=== PATIENT | female | born 1955 | race Caucasian/White ===

== ENCOUNTER 2016-12-21 20:22 | Emergency (ER) | payer BC, OTHER ==
--- NOTE | 2016-12-21 20:51 | EDM.PDOC ---
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 Patient thought initially she might have some constipation issues the stool came out somewhat thin and ribbonlike and soft but indicates she's never been regular. Now she indicates that what has brought her to the ED is the pain has now radiated into her lower back flank area.] Review of systems: As per history of present illness and below otherwise all systems reviewed and negative. Past medical history: As per history of present illness and as reviewed below otherwise noncontributory. Surgical history: As per history of present illness and as reviewed below otherwise noncontributory. Social history: No reported history of drug or alcohol abuse. Family history: As per history of present illness and as reviewed below otherwise noncontributory. Physical exam: HEENT: Atraumatic, normocephalic, pupils reactive, negative for conjunctival pallor or scleral icterus, mucous membranes moist, throat clear, neck supple, nontender, trachea midline. Lungs: Clear to auscultation, breath sounds equal bilaterally, chest nontender. Heart: S1S2, regular, negative for clicks, rubs, or JVD. Abdomen: Soft, nondistended, nontender. Negative for masses or hepatosplenomegaly. Negative for costovertebral tenderness. Pelvis: Stable nontender. Genitourinary: Deferred. Rectal: Deferred. Extremities: Atraumatic, negative for cords or calf pain. Neurovascular unremarkable. Neuro: Awake, alert, oriented. Cranial nerves II through XII unremarkable. Cerebellum unremarkable. Motor and sensory unremarkable throughout. Exam nonfocal. Patient indicated that her pain was improved and desired to go home results returned showing an acute diverticulitis patient white blood cells are within normal limits. Discussed with patient's risks and benefits and she indicated she would like to try by mouth meds at home with follow-up with her PCP on Saturday. Diagnostics: [CBC, CMP, lipase, amylase, troponin, CT of the abdomen] Therapeutics: [] Impression: [Diverticulitis] Plan: [Flagyl and Cipro] Definitive disposition and diagnosis as appropriate pending reevaluation and review of above. Left Lower Abdomen Pain Score (Numeric/FACES): 5 - Related Data Allergies Allergy/AdvReac Type Severity Reaction Status Date / Time No Known Allergies Allergy Verified 12/21/16 21:04 Home Meds: Home Meds Budesonide/Formoterol [Symbicort 80-4.5 MCG] 2 puff INH DAILY 12/21/16 [History] Fish Oil/[place]-3 Fatty Acids [Fish Oil 1,000 MG] 1 cap PO DAILY 12/21/16 [ History] ED ROS GENERAL - Review of Systems Review Of Systems: See Below (History of present illness) ED EXAM, GENERAL - Physical Exam Exam: See Below (See history of present illness) Course - Vital Signs Last Recorded V/S: Last Vital Signs Temp 36.4 C 12/21/16 20:49 Pulse 88 12/21/16 20:49 Resp 16 12/21/16 20:49 BP 132/72 12/21/16 20:49 Pulse Ox 97 12/21/16 20:49 - Orders/Labs/Meds Orders: Active Orders 24 hr Category Date Time Status Abdomen Pelvis w Cont [CT] Stat Exams 12/21/16 21:22 Taken AMYLASE [CHEM] Stat Lab 12/21/16 23:09 Received LIPASE [CHEM] Stat Lab 12/21/16 23:09 Received TROPONIN I [CHEM] Stat Lab 12/21/16 23:09 Received Labs: Laboratory Tests 12/21/16 12/21/16 12/21/16 Range/Units 20:50 20:50 21:00 WBC 7.80 (4.0-11.0) K/uL RBC 4.48 (4.30-5.90) M/uL Hgb 13.9 (12.0-16.0) g/dL Hct 41.9 (36.0-46.0) % MCV 93.5 (80.0-98.0) fL MCH 31.0 (27.0-32.0) pg MCHC 33.2 (31.0-37.0) g/dL RDW Std Deviation 45.7 (28.0-62.0) fl RDW Coeff of [place] 13 (11.0-15.0) % Plt Count 236 (150-400) K/uL MPV 10.30 (7.40-12.00) fL Neut % (Auto) 58.2 (48.0-80.0) % Lymph % (Auto) 25.9 (16.0-40.0) % [place] % (Auto) 10.1 (0.0-15.0) % Eos % (Auto) 5.3 (0.0-7.0) % Baso % (Auto) 0.5 (0.0-1.5) % Neut # (Auto) 4.5 (1.4-5.7) K/uL Lymph # (Auto) 2.0 (0.6-2.4) K/uL [place] # (Auto) 0.8 (0.0-0.8) K/uL Eos # (Auto) 0.4 (0.0-0.7) K/uL Baso # (Auto) 0.0 (0.0-0.1) K/uL Nucleated RBC % 0.0 /100WBC Nucleated RBCs # 0 K/uL Sodium (136-146) mmol/L Potassium (3.5-5.1) mmol/L Chloride (98-110) mmol/L Carbon Dioxide (21-31) mmol/L BUN (6.0-23.0) mg/dL Creatinine (0.6-1.5) mg/dL Est Cr Clr Drug Dosing Estimated GFR (MDRD) ml/min Glucose (60-110) mg/dL Calcium (8.8-10.8) mg/dL Total Bilirubin (0.1-1.5) mg/dL AST (5-40) IU/L ALT (8-54) IU/L Alkaline Phosphatase (40-150) Total Protein (6.0-8.0) g/dL Albumin (3.4-4.8) g/dL Globulin (2.0-3.5) g/dL Albumin/Globulin Ratio (1.3-2.8) Urine Color YELLOW Urine Appearance SLT CLOUDY Urine pH 6.0 (5.0-8.0) Ur Specific [place] >= 1.030 (1.001-1.035) Urine Protein NEGATIVE (NEGATIVE) mg/dL Urine Glucose (UA) NEGATIVE (NEGATIVE) mg/dL Urine Ketones TRACE H (NEGATIVE) mg/dL Urine Occult Blood TRACE-INTACT (NEGATIVE) Urine Nitrite NEGATIVE (NEGATIVE) Urine Bilirubin NEGATIVE (NEGATIVE) Urine Urobilinogen 0.2 (<2.0) EU/dL Ur Leukocyte Esterase TRACE (NEGATIVE) Urine RBC 0-2 (0-2/HPF) Urine WBC 10-15 (0-5/HPF) Ur Epithelial Cells MANY (NONE-FEW) Urine Bacteria 1+ H (NEGATIVE) Urine Mucus LIGHT (NONE-MOD) Urine HCG, Qual NEGATIVE (NEGATIVE) 12/21/16 Range/Units 21:00 WBC (4.0-11.0) K/uL RBC (4.30-5.90) M/uL Hgb (12.0-16.0) g/dL Hct (36.0-46.0) % MCV (80.0-98.0) fL MCH (27.0-32.0) pg MCHC (31.0-37.0) g/dL RDW Std Deviation (28.0-62.0) fl RDW Coeff of [place] (11.0-15.0) % Plt Count (150-400) K/uL MPV (7.40-12.00) fL Neut % (Auto) (48.0-80.0) % Lymph % (Auto) (16.0-40.0) % [place] % (Auto) (0.0-15.0) % Eos % (Auto) (0.0-7.0) % Baso % (Auto) (0.0-1.5) % Neut # (Auto) (1.4-5.7) K/uL Lymph # (Auto) (0.6-2.4) K/uL [place] # (Auto) (0.0-0.8) K/uL Eos # (Auto) (0.0-0.7) K/uL Baso # (Auto) (0.0-0.1) K/uL Nucleated RBC % /100WBC Nucleated RBCs # K/uL Sodium 140 (136-146) mmol/L Potassium 3.9 (3.5-5.1) mmol/L Chloride 107 (98-110) mmol/L Carbon Dioxide 21 (21-31) mmol/L BUN 18 (6.0-23.0) mg/dL Creatinine 1.0 (0.6-1.5) mg/dL Est Cr Clr Drug Dosing TNP Estimated GFR (MDRD) 56.4 ml/min Glucose 102 (60-110) mg/dL Calcium 10.1 (8.8-10.8) mg/dL Total Bilirubin 0.4 (0.1-1.5) mg/dL AST 16 (5-40) IU/L ALT 20 (8-54) IU/L Alkaline Phosphatase 68 (40-150) Total Protein 8.2 H (6.0-8.0) g/dL Albumin 4.3 (3.4-4.8) g/dL Globulin 3.9 H (2.0-3.5) g/dL Albumin/Globulin Ratio 1.1 L (1.3-2.8) Urine Color Urine Appearance Urine pH (5.0-8.0) Ur Specific [place] (1.001-1.035) Urine Protein (NEGATIVE) mg/dL Urine Glucose (UA) (NEGATIVE) mg/dL Urine Ketones (NEGATIVE) mg/dL Urine Occult Blood (NEGATIVE) Urine Nitrite (NEGATIVE) Urine Bilirubin (NEGATIVE) Urine Urobilinogen (<2.0) EU/dL Ur Leukocyte Esterase (NEGATIVE) Urine RBC (0-2/HPF) Urine WBC (0-5/HPF) Ur Epithelial Cells (NONE-FEW) Urine Bacteria (NEGATIVE) Urine Mucus (NONE-MOD) Urine HCG, Qual (NEGATIVE) Meds: Medications Discontinued Medications Generic Name Dose Route Start Last Admin Trade Name Freq PRN Reason Stop Dose Admin Iopamidol 80 ml 12/21/16 22:50 Isovue-300 (61%) IVPUSH 12/21/16 22:51 ONETIME STA Iopamidol 75 ml 12/21/16 22:52 12/21/16 22:54 Isovue-300 (61%) IARTIC 12/21/16 22:53 75 ml ONETIME ONE Administration Departure - Departure Time of Disposition: 23:33 Disposition: Home, Self-Care 01 Condition: Good Clinical Impression: Diverticulitis - Discharge Information Referrals: PCP,None [Primary Care Provider] - Additional Instructions: The following information is given to patients seen in the emergency department who are being discharged to home. This information is to outline your options for follow-up care. We provide all patients seen in our emergency department with a follow-up referral. The need for follow-up, as well as the timing and circumstances, are variable depending upon the specifics of your emergency department visit. If you don't have a primary care physician on staff, we will provide you with a referral. We always advise you to contact your personal physician following an emergency department visit to inform them of the circumstance of the visit and for follow-up with them and/or the need for any referrals to a consulting specialist. The emergency department will also refer you to a specialist when appropriate. This referral assures that you have the opportunity for follow-up care with a specialist. All of these measure are taken in an effort to provide you with optimal care, which includes your follow-up. Under all circumstances we always encourage you to contact your private physician who remains a resource for coordinating your care. When calling for follow-up care, please make the office aware that this follow-up is from your recent emergency room visit. If for any reason you are refused follow-up, please contact the [facility] Emergency Department at and asked to speak to the emergency department charge nurse. Take medication as directed Follow-up with PCP on Saturday as discussed Return to ED as needed as discussed - My Orders Last 24 Hours: My Active Orders 12/21/16 21:22 Abdomen Pelvis w Cont [CT] Stat 12/21/16 23:09 AMYLASE [CHEM] Stat LIPASE [CHEM] Stat TROPONIN I [CHEM] Stat - Assessment/Plan Last 24 Hours: My Active Orders 12/21/16 21:22 Abdomen Pelvis w Cont [CT] Stat 12/21/16 23:09 AMYLASE [CHEM] Stat LIPASE [CHEM] Stat TROPONIN I [CHEM] Stat
[2016-12-21 21:35] LABS: CHLORIDE,CL 107 mmol/L (98-110); SODIUM,NA 140 mmol/L (136-146)
[2016-12-21] MEDS ORDERED: Iopamidol 612 MG/ML 50 ML SDV IVPUSH STA (22:50)
[2016-12-21] MEDS ORDERED: Iopamidol 612 MG/ML 75 ML Bottle IARTIC ONE (22:52)
--- NOTE | 2016-12-23 18:46 | CT ---
EXAM DATE: 12/21/16 PATIENT'S AGE: 61 Patient: MELCHOR RIDDLE Facility: [place], [place] Site . Site : 1955 Study: CT Abdomen/Pelvis [id number] 10:44:34 PM Ordering Physician: Doctor Vieira Final Report: HISTORY: Left lower quadrant abdominal pain x3 days. TECHNIQUE: The abdomen and pelvis were scanned using technique 3 mm intervals after 80 cc of Isovue-300. Sagittal and coronal reconstructions were performed. FINDINGS: Lung bases: No infiltrate. Liver and gallbladder: The liver parenchyma is homogeneous. The gallbladder is small. No calcified gallstones. Spleen, pancreas and adrenal glands: Unremarkable. Kidneys and bladder: Symmetric nephrograms. No calcified urolithiasis or hydronephrosis. The bladder is incompletely distended and unremarkable in appearance. Retroperitoneum and lymph nodes: Abdominal aorta is normal in caliber. There are small periaortic and mesenteric lymph nodes. No pathologic adenopathy is identified. GI tract: Stomach is incompletely distended. There is some fluid and air seen in nondilated small bowel loops. The appendix is retrocecal and normal. There is some stool and gas seen scattered throughout the colon. There is diverticula of the descending and sigmoid colon. The junction of the descending and sigmoid colon, there is wall thickening and pericolic inflammatory change most consistent with acute diverticulitis. No abscess or perforation. No free air in the abdomen. There is no free fluid the pelvis. Pelvic structures: Uterus and adnexa are normal. Osseous structures: There is mild degenerative changes of the discs. IMPRESSION: Simple acute diverticulitis with wall thickening and pericolonic inflammatory change about the junction of the descending and proximal sigmoid colon. Because the wall thickening, follow up exam or colonoscopy is recommended after treatment to document resolution and exclude an underlying neoplastic process. Dictated by Jory Ya MD @ 12/21/2016 11:12:00 PM Dictated by: Jory Ya MD @ 12/21/2016 23:13:19 (Electronic Signature) Report Signed by Proxy. MUMTAZ
== END 2016-12-21 23:47 | disposition home or self-care (01) ==
LOC: MW.ED 20:22
DX: K57.92 Diverticulitis of intestine, part unspecified, without perforation or abscess without bleeding (principal); Z79.899 Other long term (current) drug therapy
CPT/HCPCS: 36415; 74177; 80053; 81001; 81025; 82150; 83690; 84484; 85025; 99284; Q9967; 99283

== ENCOUNTER 2020-02-19 06:51 | Day surgery (SDC) | payer BC, OTHER ==
[2020-02-19] MEDS ORDERED: Ondansetron 4 MG/2 ML SDV ONE (07:13)
[2020-02-19] MEDS ORDERED: Propofol 200 MG/20 ML SDV ONE (07:14)
[2020-02-19] MEDS ORDERED: Midazolam 1 MG/ML 2 ML SDV ONE (07:14)
[2020-02-19] MEDS ORDERED: fentaNYL 100 MCG/2 ML SDV ONE (07:14)
--- NOTE | 2020-02-19 07:48 | PCM.PREANE ---
Preanesthetic Assessment - Anesthesia/Transfusion/Family Hx Anesthesia History: Prior Anesthesia Without Reaction Family History of Anesthesia Reaction: No Transfusion History: No Prior Transfusion(s) Intubation History: Unknown - Review of Systems General: No Symptoms Pulmonary: No Symptoms Cardiovascular: No Symptoms Gastrointestinal: Difficulty Swallowing Neurological: No Symptoms Other: Reports: None - Physical Assessment Vital Signs: Last Vital Signs Temp 36.7 C 02/19/20 07:00 Pulse 82 02/19/20 07:00 Resp 16 02/19/20 07:00 BP 148/77 H 02/19/20 07:00 Pulse Ox 97 02/19/20 07:00 Height: 5 ft 3 in Weight: 68.946 kg ASA Class: 2 Mental Status: Alert & Oriented x3 Airway Class: Mallampati = 2 Dentition: Reports: Normal Dentition Thyro-Mental Finger Breadths: 2 (slopping chin) Mouth Opening Finger Breadths: 3 ROM/Head Extension: Full Lungs: Clear to Auscultation, Normal Respiratory Effort Cardiovascular: Regular Rate, Regular Rhythm - Allergies Allergies/Adverse Reactions: Allergies Allergy/AdvReac Type Severity Reaction Status Date / Time No Known Allergies Allergy Verified 02/15/20 08:26 - Blood Blood Available: No - Anesthesia Plan Pre-Op Medication Ordered: None - Acknowledgements Anesthesia Type Planned: MAC Pt an Appropriate Candidate for the Planned Anesthesia: Yes Alternatives and Risks of Anesthesia Discussed w Pt/Guardian: Yes Pt/Guardian Understands and Agrees with Anesthesia Plan: Yes PreAnesthesia Questionnaire - Past Health History Medical/Surgical History: Denies Medical/Surgical History HEENT History: Reports: Hard of Hearing, Impaired Vision Other HEENT History: wears glasses and hearing aids both ears Cardiovascular History: Reports: High Cholesterol Respiratory History: Reports: Asthma (symbicort once in the morning) Gastrointestinal History: Reports: Colon Polyp, Other (See Below) Other Gastrointestinal History: dysphagia Genitourinary History: Reports: None [employer] History: Musculoskeletal History: Reports: None Neurological History: Reports: None Psychiatric History: Reports: None Endocrine/Metabolic History: Reports: None Hematologic History: Reports: None Immunologic History: Reports: None Oncologic (Cancer) History: Reports: None Dermatologic History: Reports: None - Infectious Disease History Infectious Disease History: Reports: Mumps Other Infectious Disease History: when a child - Past Surgical History Head Surgeries/Procedures: Reports: None HEENT Surgical History: Reports: None Cardiovascular Surgical History: Reports: None GI Surgical History: Reports: Colonoscopy, EGD, Polypectomy Neurological Surgical History: Reports: None - SUBSTANCE USE Tobacco Use Status *Q: Former Tobacco User - HOME MEDS Home Medications: Home Meds Budesonide/Formoterol [Symbicort 80-4.5 MCG] 2 puff INH DAILY 12/21/16 [History] Fish Oil/[place]-3 Fatty Acids [Fish Oil 1,000 MG] 1 cap PO DAILY 12/21/16 [History] Famotidine 1 tab PO BID 02/15/20 [History] Inulin/Chromium Picolinate [Fiber Gummies] 3 tab PO DAILY 02/15/20 [History] Simvastatin 1 tab PO DAILY 02/15/20 [History] - CURRENT (IN HOUSE) MEDS Current Meds: Current Medications Lactated Ringer's (Ringers, Lactated) 1,000 mls @ 125 mls/hr IV ASDIRECTED CHRISTINA Last Admin: 02/19/20 07:20 Dose: 125 mls/hr Documented by: Discontinued Medications Fentanyl (Sublimaze) Confirm Administered Dose 100 mcg .ROUTE .STK-MED ONE Stop: 02/19/20 07:15 Lidocaine HCl (Xylocaine-Mpf 1%) Confirm Administered Dose 10 ml .ROUTE .STK-MED ONE Stop: 02/19/20 07:14 Midazolam HCl (Versed 1 Mg/Ml) Confirm Administered Dose 2 mg .ROUTE .STK-MED ONE Stop: 02/19/20 07:15 Ondansetron HCl (Zofran) Confirm Administered Dose 4 mg .ROUTE .STK-MED ONE Stop: 02/19/20 07:14 Propofol (Diprivan 20 Ml) Confirm Administered Dose 200 mg .ROUTE .STK-MED ONE Stop: 02/19/20 07:15
[2020-02-19] MEDS ORDERED: Lactated Ringers 1,000 ML IV SCH ×2 (08:30→08:45)
--- NOTE | 2020-02-19 08:45 | PCM.OPNOTE ---
- General Post-Op/Procedure Note Date of Surgery/Procedure: 02/19/20 Operative Procedure(s): Esophagogastroduodenoscopy with gastric and distal esophageal biopsies. Pre Op Diagnosis: Dysphagia. Family history of esophageal carcinoma. Post-Op Diagnosis: Moderate chronic gastritis without ulceration. Esophagitis. Presbyesophagus with tertiary contractions. Anesthesia Technique: MAC (ASA II) Primary Surgeon: Kem Montelongo Condition: Good Free Text/Narrative:: DICTATION [id number] CPT CODE 21154
--- NOTE | 2020-02-19 08:55 | PCM.POSTAN ---
POST ANESTHESIA ASSESSMENT - MENTAL STATUS Mental Status: Alert, Oriented - VITAL SIGNS Vital Signs: Last Vital Signs Temp 36.7 C 02/19/20 07:00 Pulse 81 02/19/20 08:51 Resp 13 02/19/20 08:51 BP 114/70 02/19/20 08:51 Pulse Ox 95 02/19/20 08:51 - RESPIRATORY Respiratory Status: Respiratory Rate WNL, Airway Patent, O2 Saturation Stable - CARDIOVASCULAR CV Status: Pulse Rate WNL, Blood Pressure Stable - GASTROINTESTINAL GI Status: No Symptoms - PAIN Pain Score: 0 - POST OP HYDRATION Hydration Status: Adequate & Stable - OBSERVATIONS Free Text/Narrative:: No anesthesia problems
--- NOTE | 2020-02-19 09:15 | PCM48HPAN ---
Post Anesthesia Note - EVALUATION WITHIN 48HRS OF ANESTHETIC Vital Signs in Normal Range: Yes Patient Participated in Evaluation: Yes Respiratory Function Stable: Yes Airway Patent: Yes Cardiovascular Function Stable: Yes Hydration Status Stable: Yes Pain Control Satisfactory: Yes Nausea and Vomiting Control Satisfactory: Yes Mental Status Recovered: Yes Vital Signs: Last Vital Signs Temp 36.5 C 02/19/20 08:51 Pulse 73 02/19/20 08:51 Resp 14 02/19/20 08:51 BP 141/97 H 02/19/20 08:51 Pulse Ox 95 02/19/20 08:51 - COMMENTS/OBSERVATIONS Free Text/Narrative:: No anesthesia problems
--- NOTE | 2020-02-19 09:42 | OR ---
SURGEON: Kem Montelongo M.D. DATE OF PROCEDURE: 02/19/2020 OPERATION PERFORMED: Esophagogastroduodenoscopy with gastric and esophageal biopsy. PRIMARY SURGEON: Kem Montelongo MD ANESTHESIA: MAC. ASA CLASSIFICATION: II. PREOPERATIVE DIAGNOSES: 1. Persistent dysphagia. 2. Family history of esophageal adenocarcinoma. POSTOPERATIVE DIAGNOSES: 1. Moderate chronic gastritis. 2. Presbyesophagus with tertiary contractions. DESCRIPTION OF PROCEDURE: The patient was taken to the endoscopy room and placed on the endoscopy table in the supine position. Time-out was called for appropriate identification of patient and procedure. Monitored anesthesia care was provided. The bite block was placed between the patient's teeth. The gastroscope was inserted through the bite block into the oropharynx and advanced without difficulty through the esophagus and stomach into the duodenum. Examination was carried out in a retrograde fashion. The duodenum showed no acute inflammatory changes or ulcerations. The stomach did show [id number] chronic gastritis. Antral biopsies were obtained to look for the presence of Helicobacter pylori. The gastroscope was retroflexed to visualize the proximal stomach. No ulcerations or tumors were noted proximally. No significant hiatal hernia was noted. The gastroscope was then straightened and slowly withdrawn carefully visualizing the greater and lesser curvatures. No tumors, polyps, or ulcerations were noted. The GE junction was well defined but did show some mild inflammatory changes. Separate biopsies of the GE junction at 37 cm were obtained. This was relatively close to the esophageal hiatus and certainly less than 3 cm from that. The scope was then slowly withdrawn to the mid esophagus. No significant longitudinal stripping waves were noted. Multiple tertiary contractions were noted. As the gastroscope was withdrawn, the vocal cords were briefly visualized and noted to move symmetrically. The gastroscope was then removed with the patient having tolerated the procedure well. She was taken to recovery room in stable condition. DAVID / CIERRA /[id number]
== END 2020-02-19 09:20 | disposition home or self-care (01) ==
LOC: MW.SDS 06:51
PROVIDERS: ATTEND Surgery
DX: K29.50 Unspecified chronic gastritis without bleeding (principal); K20.90 Esophagitis, unspecified without bleeding; K22.8 Other specified diseases of esophagus; E78.00 Pure hypercholesterolemia, unspecified; J45.909 Unspecified asthma, uncomplicated; Z79.899 Other long term (current) drug therapy; Z98.890 Other specified postprocedural states; Z80.0 Family history of malignant neoplasm of digestive organs
CPT/HCPCS: 43239; J2001; J2250; J2405; J2704; J3010; J7120